=== PATIENT | female | born 1975 | race Caucasian/White ===

== ENCOUNTER 2016-11-11 07:06 | Emergency (ER) | payer OTHER ==
[2016-11-11 07:22] VITALS: BP 150/99
--- NOTE | 2016-11-11 07:49 | EDM.PDOC ---
ED HPI GENERAL MEDICAL PROBLEM - General Chief Complaint: ENT Problem Stated Complaint: LT EAR PAIN Time Seen by Provider: 11/11/16 07:18 Source of Information: Reports: Patient, Family, RN Notes Reviewed History Limitations: Reports: No Limitations - History of Present Illness INITIAL COMMENTS - FREE TEXT/NARRATIVE: 41-year-old female presents emergency department day complaint of left ear pain she denies any fevers any swimming any contacts that she knows of. She was 4 wheeling yesterday possible exposure to trauma, Left Ear Pain Score (Numeric/FACES): 3 - Related Data Allergies Allergy/AdvReac Type Severity Reaction Status Date / Time amoxicillin AdvReac Vomiting Verified 11/11/16 07:21 codeine AdvReac Vomiting Verified 11/11/16 07:21 diphenhydramine AdvReac Vomiting Verified 11/11/16 07:21 [From Benadryl] Home Meds: Home Meds Fludrocortisone [Florinef] 1 tab PO DAILY 11/11/16 [History] predniSONE [Prednisone] 2.5 mg PO BID 11/11/16 [History] Past Medical History Cardiovascular History: Reports: Other (See Below) Other Cardiovascular History: frequent pvc's Endocrine/Metabolic History: Reports: Other (See Below) 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 Social & Family History - Tobacco Use Smoking Status *Q: Never Smoker - Alcohol Use Days Per Week of Alcohol Use: 3 Number of Drinks Per Day: 2 Total Drinks Per Week: 6 - Recreational Drug Use Recreational Drug Use: No ED ROS ENT - Review of Systems Review Of Systems: See Below Constitutional: Denies: Fever, Chills HEENT: Reports: Ear Pain. Denies: Ear Discharge Respiratory: Reports: No Symptoms Cardiovascular: Reports: No Symptoms GI/Abdominal: Reports: No Symptoms : Reports: No Symptoms ED EXAM, ENT - Physical Exam Exam: See Below Exam Limited By: No Limitations General Appearance: Alert, WD/WN, No Apparent Distress Ears: Normal External Exam, Hearing Grossly Normal, Normal TMs, Canal Swelling Nose: Normal Inspection, Normal Mucousa, No Blood Mouth/Throat: Normal Inspection, Normal Gums, Normal Lips, Normal Oropharynx, Normal Teeth Head: Atraumatic, Normocephalic Neck: Normal Inspection, Supple, Non-Tender, Full Range of Motion Respiratory/Chest: No Respiratory Distress, Lungs Clear, Normal Breath Sounds, No Accessory Muscle Use Cardiovascular: Regular Rate, Rhythm, No Murmur Course - Vital Signs Last Recorded V/S: Last Vital Signs Temp 97.3 F 11/11/16 07:22 Pulse 102 H 11/11/16 07:22 Resp 16 11/11/16 07:22 BP 150/99 H 11/11/16 07:22 Pulse Ox 96 11/11/16 07:22 Departure - Departure Time of Disposition: 07:48 Disposition: Home, Self-Care 01 Condition: Good Clinical Impression: Otitis externa of left ear Qualifiers: Otitis externa type: unspecified type Chronicity: acute Qualified Code(s): H60.502 - Unspecified acute noninfective otitis externa, left ear - Discharge Information Forms: ED Department Discharge Additional Instructions: Take full course of antibiotics, use lidocaine as needed for symptomatic relief , Please followup with your primary care provider in 3-5 days if not better, please call return to the emergency department with worsening of symptoms. - Assessment/Plan Plan: Assessment Acuity = acute Site and laterality = left otitis externa Etiology = unclear etiology Manifestations = otalgia Location of injury = Home Lab values = none Plan Treat with Ciprodex twice a day 7 days also lidocaine 4% topical to be used for symptomatic relief as needed follow-up with primary care next 3-5 days if no improvement Patient was in agreement with the plan all questions were answered, they were instructed to return to the emergency department or call for worsening symptoms. This note was dictated using [employer] voice recognition software please call with any questions.
== END 2016-11-11 08:09 | disposition home or self-care (01) ==
LOC: JP.ED 07:06
DX: H60.502 Unspecified acute noninfective otitis externa, left ear (principal); Z79.899 Other long term (current) drug therapy; Z88.1 Allergy status to other antibiotic agents; Z88.5 Allergy status to narcotic agent; Z88.8 Allergy status to other drugs, medicaments and biological substances
CPT/HCPCS: 99283